=== PATIENT | male | born 1995 | race African-American/Black ===

== ENCOUNTER 2019-09-21 14:34 | Emergency (ER) | payer SELFPAY ==
[~2019-09-21] VITALS: Ht 175.3 cm; Wt 73.0 kg
[2019-09-21 18:14] VITALS: BP 117/53
== END 2019-09-21 18:16 | disposition left against medical advice (07) ==
LOC: ER 14:34
DX: Z53.21 Procedure and treatment not carried out due to patient leaving prior to being seen by health care provider (principal)